=== PATIENT | female | born 1995 | race Caucasian/White ===

== ENCOUNTER 2022-06-14 06:23 | Emergency (ER) | payer OTHER, SELFPAY ==
[2022-06-14 06:24] VITALS: BP 117/77; PULSE 73; RESP 15; TEMP 35.9; O2SAT 99; BMI 25.0
--- NOTE | 2022-06-14 06:43 | CT_ITS ---
STUDY: CT ABDOMEN AND PELVIS WITH CONTRAST REASON FOR EXAM: Female, 26 years old. 4 day history of right lower quadrant pain with nausea. RADIATION DOSAGE (If Supplied By Facility): CTDIvol = ( 10.66 ) mGy, DLP = ( 582.72 ) mGycm TECHNIQUE: Transaxial images were obtained from the dome of the diaphragm to the symphysis pubis without oral contrast. IV 100mL Isovue-300 was administered. Sagittal and coronal images were reconstructed. Individualized dose optimization techniques were used for this CT. COMPARISON: None. FINDINGS: The visualized lung bases are unremarkable. The visualized portions of the heart are within normal limits. Normal liver. Normal gallbladder and extrahepatic biliary system. Normal spleen. Normal pancreas. Normal bilateral adrenal glands. Normal right kidney. Normal left kidney. Normal visualized stomach. Normal small intestine. Normal colon. The appendix is visualized and appears normal. Normal abdominal aorta. Normal inferior vena cava. Normal retroperitoneum. Normal urinary bladder. There is a 5.2 cm x 6.2 cm x 5.1 cm cyst in the right adnexum suggestive of a right ovarian cyst. Small amount of free fluid is seen in the cul-de-sac. Small benign-appearing bilateral inguinal lymph nodes. Normal osseous structures. CT/Abdomen/Pelvis W IV Cont ONLY IMPRESSION: 5.2 cm x 6.2 cm x 5.1 cm cyst in the right adnexa suggestive of a right ovarian cyst with a small amount of free fluid in the cul-de-sac. Electronically Signed: Fidel Jerez MD at 8:19 EDT ,
--- NOTE | 2022-06-14 06:44 | EX.ED.DYSGE1 ---
HPI History of Present Illness Chief Complaint: Abd Pain Narrative Narrative: Patient is a 26-year-old female with past medical history of PCOS. She states 3 to 4 days ago she noticed some pain in her right lower quadrant. She states there was no excessive activity or injury. She denies any dysuria or hematuria. She denies any vaginal bleeding or discharge or concern for STD. She states that the pain was mild but over the last day or so she has been having increased pain in the right lower quadrant. She states there has been no development of fever or chills but with the worsening pain she is concerned that this could be a possible appendicitis and therefore comes in for evaluation. [facility] Medical History PCOS (polycystic ovarian syndrome) Trigger finger, left index finger Home Medications metformin 1,000 mg tablet 1,000 mg PO DAILY 06/14/22 [History Last Taken Unknown] spironolactone 50 mg tablet 50 mg PO DAILY 06/14/22 [History Last Taken Unknown] thyroid (pork) 30 mg tablet ([place] Thyroid) 30 mg PO BID 06/14/22 [History Last Taken Unknown] Allergy/AdvReac Type Severity Reaction Status Date / Time No Known Allergies Allergy Verified 06/14/22 06:29 Social History Smoking Status: Never smoker [facility] ED Constitutional Constitutional ED: Denies chills or fever(s) ENT ENT ED: Denies sore throat Cardiovascular Cardiovascular: Denies chest pain Respiratory/Chest Respiratory/Chest: Denies cough or dyspnea Gastrointestinal Gastrointestinal: Reports abdominal pain and nausea; Denies diarrhea or vomiting Genitourinary Genitourinary ED: Denies dysuria or hematuria Musculoskeletal Musculoskeletal: Denies back pain or myalgias Integumentary Denies rash Neurologic Neurologic: Denies headache(s) Hematologic/Lymphatic Hematologic/Lymphatic: Denies easy bleeding or easy bruising EXAM Physical Exam Const Vital Signs: 06/14/22 06:24 Temperature 96.6 F L Temperature Source Temporal Pulse Rate 73 Respiratory Rate 15 Blood Pressure 117/77 Blood Pressure Mean 90 Pulse Ox 99 Oxygen Delivery Method Room Air Positive well nourished and well developed General Appearance ED: well developed HEENT Reports moist mucous membranes Eyes PERRL and EOMs intact bilaterally Neck supple Resp normal respiratory effort and clear to auscultation bilaterally Cardio regular rate and regular rhythm Rate: other Other Details: Radial pulses are plus 2 out of 4 bilaterally are equal and symmetric GI non-distended GI Narrative: Abdomen is soft and nondistended with normoactive bowel sound. There is pain with palpation mainly in the right lower quadrant with mild voluntary guarding. However no rebound or rigidity. Negative heel strike psoas and obturator sign. Auscultation: normoactive bowel sounds Palpation: soft Back/Spine no CVA tenderness Extremity normal to inspection Neuro oriented x3 and CN's II-XII intact bilaterally Sensorium / Orientation: alert Psych mental status grossly normal Skin no rashes or lesions noted MDM MDM MDM Narrative Medical decision making narrative: Patient presented to the ER afebrile with stable vitals. She has been having worsening right lower quadrant pain without reported hematuria or dysuria. On exam she does have guarding at that site. Therefore there is concern that patient could be developing a ovarian pathology such as cyst or ectopic or possible appendicitis. Secondary to his basic blood work with urine sample will be obtained. Pending a negative test patient will undergo a CT scan to check for possible appendicitis or kidney stone. I feel that if work-up does not reveal any changes to suggest /ectopic and he does not find any acute abdominal pathology such as kidney stone or appendicitis that as long as her pain is under control and she will be safe for discharge. The patient will be signed out to the oncoming provider pending the completion of blood work and imaging studies Discharge Plan Triage Chief Complaint: Abd Pain ED Provider: Coleman Valerio Dx/Rx/DC Orders Prescriptions: No Action thyroid (pork) [[place] Thyroid] 30 mg Tablet 30 mg PO BID metformin 1,000 mg Tablet 1,000 mg PO DAILY spironolactone 50 mg Tablet 50 mg PO DAILY
[2022-06-14] MEDS: 0.9% Normal Saline 1,000 ML 999 ML IV (06:52)
[2022-06-14 07:01] LABS: Bacteria 0 SEEN /hpf (None Seen); Mucous, Urine 0 SEEN /hpf (<or=2+); Red Blood Cells-Urine 0 SEEN /hpf (0-5); White Blood Cells 0 SEEN /hpf (0-5)
[2022-06-14 07:02] LABS: Absolute Lymphocyte Count 4.95 X10^3/uL (0.83-4.51); Absolute Neutrophil Count 4.6 X10^3/uL (2.0-7.7); Basophil# 0.04 X10^3/uL; Basophil% 0.4 % (0-1); Eosinophil# 0.08 X10^3/uL; Eosinophils% 0.8 % (0-5); Hematocrit 41.4 % (37-47); Hemoglobin 13.4 g/dL (12.0-15.0); Lymphocyte # 4.95 X10^3/ul (0.83-4.51); Lymphocyte % 47.1 % (19-41); Mean Corp Hgb Conc 32.4 g/dL (32-36); Mean Corpuscular Hgb 27.9 pg (27.0-32.0); Mean Corpuscular Volume 86.1 fL (81-99); Mean Platelet Vol. 10.8 fl (6.2-12.0); Monocyte# 0.83 X10^3/uL; Monocyte% 7.9 % (0-10); NRBC Flagged by Analyzer 0 % (0-5); Neutrophil # 4.59 X10^3/uL (2.7-7.7); Neutrophil % 43.6 % (47-70); Platelet Count 233 K/mm3 (150-450); RBC Distribution Width CV 13.9 % (11.6-14.6); RBC Distribution Width SD 43.8 fl (35.1-43.9); Red Blood Count 4.81 M/mm3 (4.2-5.4); White Blood Count 10.5 K/mm3 (4.4-11.0)
[2022-06-14 07:13] LABS: Internal QC Validated? YES +Cl - CLEAR BKGD; Pregnancy, Urine Negative Negative
[2022-06-14 07:23] LABS: AST(SGOT) 16 U/L (15-37); Alanine Aminotransfer ALT/SGPT 23 U/L (13-56); Albumin, Serum 4.1 g/dL (3.2-5.0); Alkaline Phosphatase 44 U/L (45-117); Anion Gap 8 (5-15); BUN 18 mg/dL (7-18); BUN/Creat Ratio 21.8 RATIO (10-20); Bilirubin, Direct 0.18 mg/dL (0.00-0.30); Calcium,Total 9.3 mg/dL (8.5-10.1); Chloride 103 mmol/L (98-107); Creatinine, Serum 0.83 mg/dL (0.55-1.02); EST Glomerular Filtration Rate 89 mL/min (>60); Est Glom Filt Rate - Afr Amer 107 mL/min (>60); Estimated Creatinine Clearance 93.24 ml/min; Globulin 3.3 g/dL (2.2-4.2); Glucose 80 mg/dL (74-106); Glucose, Dipstick Normal (Normal); Ketone-Dipstick 15 mg/dl (Negative); Leukocyte Esterase-Dipstick Negative /ul (Negative); Lipase 102 U/L (73-393); Nitrite-Dipstick Negative (Negative); Occult Blood-Urine Negative /ul (Negative); Potassium 3.5 mmol/L (3.5-5.1); Protein, Total 7.4 g/dL (6.4-8.2); Protein-Dipstick Negative (Negative); Sodium Level 137 mmol/L (136-145); Specific Gravity, Urine 1.015 (1.002-1.030); Urine Bilirubin Dipstick Negative (Negative); Urine Urobilinogen Normal (Normal)
[2022-06-14 07:26] LABS: Color, Urine Yellow (Yellow)
[2022-06-14 07:27] LABS: Urine Clarity Clear (Clear)
[2022-06-14 07:31] LABS: Squamous Epithelial Cells - UA 0-5 SEEN /hpf (5-10)
--- NOTE | 2022-06-14 08:29 | US_ITS ---
STUDY: ULTRASOUND OF THE FEMALE PELVIS - COMPLETE REASON FOR EXAM: Female, 26 years old. Pelvic pain, possible ovarian torsion LMP: 05/24/2022. TECHNIQUE: Transvaginal TECHNICAL QUALITY: Adequate. COMPARISON: Comparison is made with prior CT scan of the abdomen and pelvis done earlier today. FINDINGS: The uterus is anteverted and is in a midline position. The uterus measures 8.4 cm x 5.3 cm x 3.7 cm. Normal uterine cervix. The endometrium measures 3.3 mm in thickness, and is hyperechoic. There is no demonstrated endometrial mass. There is no demonstrated myometrial mass. I.U.D. - The patient does not have an I.U.D. The right ovary is visualized. The right ovary measures 6.8 cm x 5.5 cm x 5.3 cm. There is a 5.9 cm x 5 cm x 4.5 cm cyst in the right ovary. There is no visualized right adnexal mass or complex lesion. There is normal arterial and normal venous vascularity. The left ovary is visualized. The left ovary measures 2.5 cm x 2.3 cm x 1.7 cm. There is no left ovarian cyst or ovarian mass. There is no visualized left adnexal mass or complex lesion. There is normal arterial and normal venous vascularity. There is no fluid in the cul-de-sac. US/Transvaginal Non- IMPRESSION: 5.9 cm x 5 cm x 4.5 cm right ovarian cyst. There is no evidence of torsion. Electronically Signed: Fidel Jerez MD at 9:19 EDT ,
== END 2022-06-14 09:46 | disposition home or self-care (01) ==
PROVIDERS: Emergency Provider Emergency Medicine; Visit Provider Emergency Medicine
DX: N83.201 Unspecified ovarian cyst, right side (principal); R10.31 Right lower quadrant pain
CPT/HCPCS: 74177; 76830; 80048; 80076; 81001; 81025; 83605; 83690; 85025; 96360; 99283; J7030; Q9967; A4216